=== PATIENT | male | born 1960 | race Caucasian/White ===

== ENCOUNTER 2021-05-18 12:30 | Emergency (ER) | payer BC, OTHER ==
[~2021-05-18] VITALS: Ht 172.7 cm; Wt 74.8 kg
[2021-05-18 12:30] VITALS: BP_SYST 164
--- NOTE | 2021-05-18 12:30 | NUR ---
BROUGHT BACK TO ER BED #2 AND TRIAGED. REPORT GIVEN TO CLAUDINE
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
--- NOTE | 2021-05-18 12:56 | NUR ---
ER at bedside examining patient.
--- NOTE | 2021-05-18 14:10 | NUR ---
Patient given written and verbal discharge instructions and verbalizes understanding. ER Dr. Martin discussed with patient the results and treatment provided. Patient in stable condition. ID arm band removed. Patient educated on pain management and to follow up with PMD. Pain Scale 2. Opportunity for questions provided and answered.
[2021-05-18 14:13] VITALS: BP_SYST 152
== END 2021-05-18 14:13 | disposition home or self-care (01) ==
LOC: SED 12:30
DX: S39.012A Strain of muscle, fascia and tendon of lower back, initial encounter (principal); R07.89 Other chest pain; I10 Essential (primary) hypertension; V43.02XA Car driver injured in collision with other type car in nontraffic accident, initial encounter; Y93.89 Activity, other specified; Y92.89 Other specified places as the place of occurrence of the external cause; Y99.8 Other external cause status
CPT/HCPCS: 71046-TC; 93005; 99283